=== PATIENT | female | born 1970 | race Two or more races ===

== ENCOUNTER 2024-04-04 09:10 | Emergency (ER) | payer OTHER ==
[2024-04-04 09:21] VITALS: BP 174/85; PULSE 62; RESP 20; TEMP 98.2; BMI 33.6
[2024-04-04] MEDS ORDERED: ACETAMINOPHEN INJECTION 100 ML IVPB ONE (11:34)
[2024-04-04] MEDS ORDERED: MAG HYDROX/AL HYDROX/SIMETH 30 ML UNIT-DOSE CUP ONE (11:34)
[2024-04-04] MEDS ORDERED: FAMOTIDINE 10 MG/ML VIAL IVPB ONE ×2 (11:36→12:16)
[2024-04-04] MEDS: ACETAMINOPHEN 1000 MG/100 ML BAG IVPB ONE (11:50)
[2024-04-04] MEDS: MAG HYDROX/AL HYDROX/SIMETH 30 ML UNIT-DOSE CUP PO ONE (11:50)
[2024-04-04 11:57] LABS: BASO % 0.5 % (0-2.0); HEMATOCRIT 43.4 % (32.4-45.2); HEMOGLOBIN 14.3 GM/dL (10.7-15.3); LYMPH % 23.6 % (8-40); MCH 25.6 pg (25.7-33.7); MCHC 32.9 g/dl (32.0-36.0); MEAN CELL VOLUME 77.9 fl (80-96); MEAN PLT VOLUME 10.2 fl (7.5-11.1); MONO % 5.8 % (3.8-10.2); NEUT % 69.1 % (42.8-82.8); PLATELET COUNT 227 10^3/uL (134-434); RBC 5.57 M/mm3 (3.60-5.2); RDW 15.5 % (11.6-15.6); WHITE BLOOD COUNT 8.5 K/mm3 (4.0-10.0)
[2024-04-04 12:03] LABS: INR 1.06 (0.83-1.09)
[2024-04-04 12:05] LABS: ACTIVATED PTT 32.9 SECONDS (25.2-36.5)
[2024-04-04 12:07] LABS: PH,URINE 5.5 (5.0-8.0); URINE APPEARANCE CLEAR; URINE BILIRUBIN NEGATIVE (NEGATIVE); URINE COLOR YELLOW; URINE GLUCOSE (UA) NEGATIVE (NEGATIVE); URINE KETONE NEGATIVE (NEGATIVE); URINE LEUK ESTERASE NEGATIVE (NEGATIVE); URINE NITRITE NEGATIVE (NEGATIVE); URINE PROTEIN NEGATIVE (NEGATIVE); URINE UROBILINOGEN 0.2 mg/dL (0.2-1.0)
[2024-04-04 12:14] LABS: POTASSIUM 4.3 mmol/L (3.5-5.1)
[2024-04-04 12:16] LABS: BLOOD UREA NITROGEN 8.9 mg/dL (7-18); CALCIUM 9.5 mg/dL (8.5-10.1)
[2024-04-04 12:17] LABS: ALBUMIN 3.4 g/dl (3.4-5.0)
[2024-04-04 12:19] LABS: CREATININE 0.6 mg/dL (0.55-1.3)
[2024-04-04 12:21] LABS: BILIRUBIN,TOTAL 0.2 mg/dL (0.2-1); TOT PROT 7.6 g/dl (6.4-8.2)
[2024-04-04] MEDS: FAMOTIDINE 20 MG/50 ML IVPB 20 MG/50 ML MG IVPB ONE (12:25)
== END 2024-04-04 14:19 | disposition home or self-care (01) ==
LOC: JER 09:10
PROC: 3E033GC Introduction of Other Therapeutic Substance into Peripheral Vein, Percutaneous Approach (ICD-10-PCS; principal; 2024-04-04)
PROC: 3E033NZ Introduction of Analgesics, Hypnotics, Sedatives into Peripheral Vein, Percutaneous Approach (ICD-10-PCS; 2024-04-04)
DX: R10.11 Right upper quadrant pain (principal); R50.9 Fever, unspecified; R42 Dizziness and giddiness; R53.1 Weakness
CPT/HCPCS: 36415; 71046-TC-FY; 76705-TC; 80053; 81003; 83690; 83735; 84484; 84703; 85025; 85610; 85730; 86850; 86900; 86901; 87086; 93005; 93010; 99285-25; J0131

== ENCOUNTER 2024-06-18 12:17 | Emergency (ER) | payer OTHER ==
[2024-06-18 12:30] VITALS: BP 146/79; PULSE 66; RESP 16; TEMP 98.6; BMI 34.0
[2024-06-18] MEDS ORDERED: METOCLOPRAMIDE HCL INJECTION 10 MG/2 ML VIAL ONE (13:22)
[2024-06-18] MEDS ORDERED: ACETAMINOPHEN INJECTION 100 ML IVPB ONE (13:22)
[2024-06-18] MEDS: ACETAMINOPHEN 1000 MG/100 ML BAG IVPB ONE (13:42)
[2024-06-18] MEDS: METOCLOPRAMIDE HCL INJECTION 10 MG/2 ML VIAL IVPB ONE (13:42)
[2024-06-18] MEDS: SODIUM CHLORIDE 0.9% 500 ML INFUS.BAG IV ONE (13:43)
[2024-06-18 13:50] LABS: BASO % 0.8 % (0-2.0); EOS % 0.6 % (0-4.5); HEMATOCRIT 38.9 % (32.4-45.2); HEMOGLOBIN 12.9 GM/dL (10.7-15.3); LYMPH % 23.1 % (8-40); MCH 25.6 pg (25.7-33.7); MCHC 33.3 g/dl (32.0-36.0); MEAN PLT VOLUME 9.7 fl (7.5-11.1); MONO % 6.3 % (3.8-10.2); NEUT % 69.2 % (42.8-82.8); PLATELET COUNT 171 10^3/uL (134-434); RBC 5.04 M/mm3 (3.60-5.2); RDW 14.8 % (11.6-15.6); WHITE BLOOD COUNT 6.9 K/mm3 (4.0-10.0)
[2024-06-18 14:08] LABS: POTASSIUM 3.9 mmol/L (3.5-5.1)
[2024-06-18 14:10] LABS: ALBUMIN 3.4 g/dl (3.4-5.0)
[2024-06-18 14:14] LABS: CREATININE 0.7 mg/dL (0.55-1.3)
[2024-06-18 14:15] LABS: BILIRUBIN,TOTAL 0.2 mg/dL (0.2-1); TOT PROT 7.1 g/dl (6.4-8.2)
[2024-06-18] MEDS ORDERED: DEXAMETHASONE SOD PHOSPHATE 10 MG/1 ML VIAL ONE (14:48)
[2024-06-18] MEDS: DEXAMETHASONE SOD PHOSPHATE 10 MG/1 ML VIAL IVPUSH ONE (14:59)
== END 2024-06-18 15:24 | disposition home or self-care (01) ==
LOC: JER 12:17
PROC: 3E033NZ Introduction of Analgesics, Hypnotics, Sedatives into Peripheral Vein, Percutaneous Approach (ICD-10-PCS; principal; 2024-06-18)
PROC: 3E033GC Introduction of Other Therapeutic Substance into Peripheral Vein, Percutaneous Approach (ICD-10-PCS; 2024-06-18)
PROC: 3E033GC Introduction of Other Therapeutic Substance into Peripheral Vein, Percutaneous Approach (ICD-10-PCS; 2024-06-18)
DX: R51.9 Headache, unspecified (principal); G89.29 Other chronic pain; R11.2 Nausea with vomiting, unspecified; Z20.822 Contact with and (suspected) exposure to COVID-19
CPT/HCPCS: 0241U-QW; 36415; 71046-TC-FY; 80053; 83735; 84484; 85025; 93005; 93010; 99285-25; J0131; J1100

== ENCOUNTER 2025-06-02 13:11 | Emergency (ER) | payer OTHER ==
[2025-06-02 13:20] VITALS: BMI 31.6
[2025-06-02 14:23] LABS: ABSOLUTE IMMATURE GRANULOCYTES 0.02 x10^3/uL (0.0-0.031); BASOPHILS # 0.08 x10^3/uL (0.01-0.08); EOSINOPHIL % 1.2 % (0.7-5.8); EOSINOPHILS # 0.10 x10^3/uL (0.04-0.36); MCHC 30.8 g/dl (32.2-35.5); MEAN CELL VOLUME 80.5 fl (79.4-94.8); MEAN PLT VOLUME 12.8 fl (9.4-12.3); MONOCYTE # 0.50 x10^3/uL (0.24-0.86); MONOCYTE % 5.9 % (4.7-12.5); RDW 14.3 % (12.3-16.6)
[2025-06-02] MEDS ORDERED: ONDANSETRON 4 MG/2 ML VIAL ONE (14:34)
[2025-06-02] MEDS ORDERED: ACETAMINOPHEN INJECTION 100 ML ONE (14:34)
[2025-06-02] MEDS ORDERED: FAMOTIDINE 20 MG/50 ML IVPB 20 MG/50 ML MG IVPB ONE (14:34)
[2025-06-02 14:37] LABS: INR 1.06 (0.83-1.09); PROTHROMBIN TIME (PATIENT) 11.5 SEC (9.7-13.0)
[2025-06-02] MEDS: ONDANSETRON 4 MG/2 ML VIAL IVPUSH ONE (14:38)
[2025-06-02 14:40] LABS: CO2 28.0 mmol/L (21-32); GLUCOSE,RANDOM 123.0 mg/dL (74-106)
[2025-06-02] MEDS: ACETAMINOPHEN 1000 MG/100 ML BAG IVPB ONE (14:40)
[2025-06-02 14:43] LABS: CREATININE 0.9 mg/dL (0.55-1.3); SGOT/AST 36.0 U/L (15-37); SGPT/ALT 63.0 U/L (13-61)
[2025-06-02 14:45] LABS: TOT PROT 7.3 g/dl (6.4-8.2)
[2025-06-02] MEDS: FAMOTIDINE 20 MG/50 ML IVPB 20 MG/50 ML MG IVPB ONE (14:45)
[2025-06-02 14:46] LABS: ALK PHOS 106.0 U/L (45-117)
[2025-06-02 15:24] LABS: URINE APPEARANCE CLEAR; URINE BILIRUBIN NEGATIVE (NEGATIVE); URINE COLOR YELLOW; URINE GLUCOSE (UA) NEGATIVE (NEGATIVE); URINE KETONE TRACE (NEGATIVE); URINE LEUK ESTERASE NEGATIVE (NEGATIVE); URINE NITRITE NEGATIVE (NEGATIVE); URINE PROTEIN NEGATIVE (NEGATIVE); URINE UROBILINOGEN 0.2 mg/dL (0.2-1.0)
[2025-06-02 15:40] LABS: HIV INTERPRETATION NEGATIVE (NEGATIVE)
[2025-06-02 15:41] LABS: HCV DIAGNOSTIC IN-HOUSE W/RFLX NON-REACTIVE (NONREACTIVE)
[2025-06-02 16:33] VITALS: TEMP 98.2
[2025-06-02] MEDS: KETOROLAC TROMETHAMINE 15 MG/ML VIAL IVPUSH ONE (18:31)
[2025-06-02] MEDS ORDERED: KETOROLAC TROMETHAMINE 15 MG/ML VIAL ONE (18:31)
[2025-06-02 18:38] VITALS: BP 137/67; PULSE 57; RESP 16
== END 2025-06-02 18:45 | disposition home or self-care (01) ==
LOC: JER 13:11
PROC: 3E033GC Introduction of Other Therapeutic Substance into Peripheral Vein, Percutaneous Approach (ICD-10-PCS; principal; 2025-06-02)
PROC: 3E033GC Introduction of Other Therapeutic Substance into Peripheral Vein, Percutaneous Approach (ICD-10-PCS; 2025-06-02)
PROC: 3E033NZ Introduction of Analgesics, Hypnotics, Sedatives into Peripheral Vein, Percutaneous Approach (ICD-10-PCS; 2025-06-02)
PROC: 3E0333Z Introduction of Anti-inflammatory into Peripheral Vein, Percutaneous Approach (ICD-10-PCS; 2025-06-02)
DX: R10.31 Right lower quadrant pain (principal); R11.0 Nausea; R30.9 Painful micturition, unspecified
CPT/HCPCS: 36415; 74177-TC; 80053; 81003; 83690; 83735; 85025; 85610; 86803; 86850; 86900; 86901; 87086; 87389; 99285-25; Q9967